=== PATIENT | male | born 1960 | race Caucasian/White ===

== ENCOUNTER 2023-01-09 23:00 | Inpatient (IN) | payer SELFPAY ==
[2023-01-09 23:54] LABS: #Eosinphils 0.1 thou/uL (0.0-0.7); #Monocytes 0.3 thou/uL (0.11-0.59); #Neutrophils 3.3 thou/uL (1.40-6.50); %Basophils 0.6 % (0.0-1.0); %Lymphocytes 29.6 % (21.0-51.0); %Monocytes 6.3 % (0.0-10.0); %Neutrophils 61.1 % (42.0-75.0); Hematocrit 37.4 % (42.0-52.0); Mean Corpuscular HGB CONC 34.8 g/dL (32.0-36.0); Mean Corpuscular Hemoglobin 29.5 pg (27.0-31.0); Mean Platelet Volume 9.6 fL (7.4-10.4); Platelet Count 212 10x3/uL (130-400); RBC Distribution Width 13.7 % (11.5-14.5); White Blood Cell (WBC) Count 5.4 10x3/uL (4.8-10.8)
[2023-01-10 00:18] LABS: ALT (SGPT) 18 U/L (8-55); AST (SGOT) 11 U/L (5-34); Albumin 4.4 g/dL (3.5-5.0); Alkaline Phosphatase 61 U/L (40-110); Anion Gap 15 mmol/L (10-20); BUN (Urea Nitrogen) 12 mg/dL (8.4-25.7); Bilirubin, Total 0.6 mg/dL (0.2-1.2); Calc. Creatinine Clearance 0 mL/min (70-130); Calcium 9.3 mg/dL (7.8-10.44); Carbon Dioxide 21 mmol/L (22-29); Chloride 103 mmol/L (98-107); Estimated GFR 79; Globulin 3.3 g/dL (2.4-3.5); Magnesium 1.8 mg/dL (1.6-2.6); Potassium 3.9 mmol/L (3.5-5.1); Protein, Total 7.7 g/dL (6.0-8.3); Sodium 135 mmol/L (136-145)
[2023-01-10 00:20] LABS: Troponin I 0.053 ng/mL (< 0.028)
[2023-01-10 00:23] LABS: Glucose 425 mg/dL (70-105)
[2023-01-10] MEDS ORDERED: Furosemide 40 MG/4 ML VIAL ONE ×2 (00:27→13:59)
[2023-01-10] MEDS ORDERED: Azithromycin 500 MG VIAL ONE (03:38)
[2023-01-10] MEDS ORDERED: cefTRIAXone (ROCEPHIN) 1 GM VIAL ONE (03:39)
[2023-01-10] MEDS ORDERED: Acetaminophen 325 MG TAB PO PRN (04:40)
[2023-01-10] MEDS ORDERED: Ondansetron PF 4 MG/2 ML Vial IVP PRN (04:40)
[2023-01-10 04:47] LABS: Troponin I 0.044 ng/mL (< 0.028)
[2023-01-10] MEDS ORDERED: Dextrose 5% in Water 1,000 ML IV PRN (05:01)
[2023-01-10] MEDS ORDERED: Dextrose 50% Abboject 50 ML SYRINGE SLOW IVP PRN (05:01)
[2023-01-10] MEDS ORDERED: Glucagon 1 MG/ML KIT IM PRN (05:01)
[2023-01-10] MEDS ORDERED: HumaLOG 300 UNITS/3 ML VIAL SC PRN (05:01)
[2023-01-10] MEDS ORDERED: Furosemide 20 MG/2 ML VIAL SLOW IVP SCH (06:00)
[2023-01-10 08:08] LABS: Hemoglobin A1c 9.9 % (4.0-6.0)
[2023-01-10] MEDS ORDERED: Furosemide 20 MG/2 ML VIAL ONE (08:10)
[2023-01-10] MEDS ORDERED: Lisinopril 10 MG TAB PO SCH (11:00)
[2023-01-10] MEDS ORDERED: Iopamidol-370 76% 500 ML MDV (1 ML CHARGE) ONE (11:40)
[2023-01-10 12:40] VITALS: BMI 27.8
[2023-01-10] MEDS ORDERED: HumaLOG 300 UNITS/3 ML VIAL ONE (12:53)
[2023-01-10] MEDS: HumaLOG 300 UNITS/3 ML VIAL SC PRN (12:59)
[2023-01-10] MEDS: Furosemide 40 MG/4 ML VIAL SLOW IVP SCH (14:38)
[2023-01-10] MEDS: Carvedilol 3.125 MG TAB PO SCH (20:26)
[2023-01-10] MEDS ORDERED: Melatonin 3 MG TAB PO PRN (20:33)
[2023-01-10] MEDS ORDERED: Atorvastatin Calcium 40 MG TAB PO SCH (21:00)
[2023-01-11] MEDS ORDERED: cefTRIAXone\\ROCEPHIN 1 GM in Sodium Chloride 0.9% 100 ML IVPB SCH (04:00)
[2023-01-11] MEDS ORDERED: Azithromycin 500 MG in Sodium Chloride 0.9% 250 ML 250 ML IVPB SCH (04:00)
[2023-01-11 04:19] LABS: #Basophils 0.1 thou/uL (0.0-0.2); #Eosinphils 0.2 thou/uL (0.0-0.7); #Monocytes 0.6 thou/uL (0.11-0.59); #Neutrophils 3.3 thou/uL (1.40-6.50); %Basophils 0.9 % (0.0-1.0); %Monocytes 10.4 % (0.0-10.0); %Neutrophils 57.3 % (42.0-75.0); Hematocrit 38.5 % (42.0-52.0); Hemoglobin 13.1 g/dL (14.0-18.0); Mean Corpuscular Volume 85.2 fl (78.0-98.0); Mean Platelet Volume 9.8 fL (7.4-10.4); Platelet Count 212 10x3/uL (130-400); RBC Distribution Width 13.4 % (11.5-14.5); Red Blood Cell (RBC) Count 4.52 mill/uL (4.70-6.10); White Blood Cell (WBC) Count 5.7 10x3/uL (4.8-10.8)
[2023-01-11 04:52] LABS: Anion Gap 16 mmol/L (10-20); BUN (Urea Nitrogen) 18 mg/dL (8.4-25.7); Calc. Creatinine Clearance 84 mL/min (70-130); Calcium 9.8 mg/dL (7.8-10.44); Carbon Dioxide 27 mmol/L (22-29); Chloride 100 mmol/L (98-107); Cholesterol 231 mg/dl (< 200 Desired); Estimated GFR 69; Glucose 233 mg/dL (70-105); HDL Cholesterol 33 mg/dL (>60 Neg Risk); LDL Cholesterol, Calculated 155 mg/dL; Potassium 3.6 mmol/L (3.5-5.1); Sodium 139 mmol/L (136-145); Triglycerides 214 mg/dL (Less than 150)
[2023-01-11] MEDS: Furosemide 40 MG/4 ML VIAL SLOW IVP SCH ×2 (05:57→14:25)
[2023-01-11] MEDS ORDERED: Lisinopril 2.5 MG TAB PO SCH (09:00)
[2023-01-11] MEDS ORDERED: metFORMIN 500 MG TAB PO SCH (09:00)
[2023-01-11] MEDS ORDERED: Aspirin 81 mg Enteric Coated Tablet PO SCH (09:00)
[2023-01-11] MEDS ORDERED: Clopidogrel Bisulfate 75 MG TAB PO SCH (09:00)
[2023-01-11] MEDS: Carvedilol 3.125 MG TAB PO SCH (09:10)
[2023-01-11 11:45] VITALS: TEMP 98.1
[2023-01-11 11:46] VITALS: BP 136/82
[2023-01-11] MEDS: HumaLOG 300 UNITS/3 ML VIAL SC PRN (12:35)
== END 2023-01-11 15:51 | disposition home or self-care (01) | DRG 280 ==
LOC: ERS 23:00 → ERHOLD 01-10 04:43 → OBSVTOIN 01-10 05:47 → 2SW 01-10 18:02
PROVIDERS: ADMIT Internal Medicine; ATTEND Nurse Practitioner Acute Care
DX: I11.0 Hypertensive heart disease with heart failure (principal); I50.23 Acute on chronic systolic (congestive) heart failure; I21.A1 Myocardial infarction type 2; J18.9 Pneumonia, unspecified organism; E78.5 Hyperlipidemia, unspecified; I25.10 Atherosclerotic heart disease of native coronary artery without angina pectoris; G47.33 Obstructive sleep apnea (adult) (pediatric); F17.220 Nicotine dependence, chewing tobacco, uncomplicated; E11.65 Type 2 diabetes mellitus with hyperglycemia; R77.8 Other specified abnormalities of plasma proteins; Z95.1 Presence of aortocoronary bypass graft; Z85.828 Personal history of other malignant neoplasm of skin; Z82.49 Family history of ischemic heart disease and other diseases of the circulatory system
CPT/HCPCS: 36415; 36416; 71046; 71275; 80048; 80053; 80061; 83036; 83735; 83880; 84145; 84484; 85025; 85379; 93005; 93306; 97139; J0456; J0696; J1650; J1815; J1940; Q9967

== ENCOUNTER 2023-01-17 07:38 | Emergency (ER) | payer SELFPAY ==
[2023-01-17] MEDS ORDERED: Aspirin Chewable 81 MG TAB ONE (08:00)
[2023-01-17 08:23] LABS: #Eosinphils 0.1 thou/uL (0.0-0.7); #Monocytes 0.5 thou/uL (0.11-0.59); #Neutrophils 5.7 thou/uL (1.40-6.50); %Basophils 0.4 % (0.0-1.0); %Eosinophils 1.1 % (0.0-10.0); %Lymphocytes 15.7 % (21.0-51.0); %Monocytes 6.3 % (0.0-10.0); %Neutrophils 76.1 % (42.0-75.0); Hemoglobin 12.8 g/dL (14.0-18.0); Mean Corpuscular HGB CONC 34.6 g/dL (32.0-36.0); Mean Corpuscular Hemoglobin 29.9 pg (27.0-31.0); Mean Corpuscular Volume 86.4 fl (78.0-98.0); Mean Platelet Volume 9.9 fL (7.4-10.4); Platelet Count 174 10x3/uL (130-400); RBC Distribution Width 13.3 % (11.5-14.5); Red Blood Cell (RBC) Count 4.28 mill/uL (4.70-6.10); White Blood Cell (WBC) Count 7.4 10x3/uL (4.8-10.8)
[2023-01-17] MEDS ORDERED: Furosemide 40 MG/4 ML VIAL ONE (08:43)
[2023-01-17 11:28] LABS: Albumin 4.3 g/dL (3.5-5.0)
[2023-01-17 11:29] LABS: Calcium 9.5 mg/dL (7.8-10.44); Chloride 105 mmol/L (98-107); Sodium 138 mmol/L (136-145)
[2023-01-17 11:30] LABS: Globulin 3.2 g/dL (2.4-3.5); Glucose 243 mg/dL (70-105); Protein, Total 7.5 g/dL (6.0-8.3)
[2023-01-17 11:32] LABS: Anion Gap 17 mmol/L (10-20); Bilirubin, Total 0.7 mg/dL (0.2-1.2); Carbon Dioxide 20 mmol/L (22-29)
[2023-01-17 11:33] LABS: Alkaline Phosphatase 54 U/L (40-110)
[2023-01-17 11:34] LABS: BUN (Urea Nitrogen) 17 mg/dL (8.4-25.7); Calc. Creatinine Clearance 0 mL/min (70-130); Estimated GFR 79
[2023-01-17 11:35] LABS: AST (SGOT) 17 U/L (5-34)
[2023-01-17 11:36] LABS: ALT (SGPT) 34 U/L (8-55)
[2023-01-17 12:40] LABS: Troponin I 0.019 ng/mL (< 0.028)
== END 2023-01-17 13:44 | disposition home or self-care (01) ==
LOC: ERS 07:38
DX: R06.00 Dyspnea, unspecified (principal); I11.0 Hypertensive heart disease with heart failure; I50.9 Heart failure, unspecified; E11.9 Type 2 diabetes mellitus without complications; E78.5 Hyperlipidemia, unspecified; F17.200 Nicotine dependence, unspecified, uncomplicated; Z79.84 Long term (current) use of oral hypoglycemic drugs; Z79.899 Other long term (current) drug therapy
CPT/HCPCS: 36415; 71045; 80053; 83880; 84484; 85025; 93005; 94760; 96374; J1940

== ENCOUNTER 2023-02-14 07:16 | Observation (INO) | payer SELFPAY ==
[2023-02-14 08:04] LABS: #Eosinphils 0.1 thou/uL (0.0-0.7); #Monocytes 0.4 thou/uL (0.11-0.59); #Neutrophils 4.3 thou/uL (1.40-6.50); %Basophils 0.3 % (0.0-1.0); %Eosinophils 1.7 % (0.0-10.0); %Monocytes 6.9 % (0.0-10.0); %Neutrophils 70.9 % (42.0-75.0); Hematocrit 37.9 % (42.0-52.0); Hemoglobin 12.3 g/dL (14.0-18.0); Mean Corpuscular HGB CONC 32.5 g/dL (32.0-36.0); Mean Corpuscular Hemoglobin 28.5 pg (27.0-31.0); Mean Corpuscular Volume 87.9 fl (78.0-98.0); Mean Platelet Volume 10.3 fL (7.4-10.4); Platelet Count 210 10x3/uL (130-400); RBC Distribution Width 13.5 % (11.5-14.5); Red Blood Cell (RBC) Count 4.31 mill/uL (4.70-6.10); White Blood Cell (WBC) Count 6.1 10x3/uL (4.8-10.8)
[2023-02-14] MEDS ORDERED: Furosemide 20 MG (2 mL) VIAL ONE ×2 (08:40→09:49)
[2023-02-14 09:15] LABS: ALT (SGPT) 28 U/L (8-55); AST (SGOT) 14 U/L (5-34); Albumin 4.5 g/dL (3.5-5.0); Alkaline Phosphatase 59 U/L (40-110); Anion Gap 14 mmol/L (10-20); BUN (Urea Nitrogen) 18 mg/dL (8.4-25.7); Bilirubin, Total 0.8 mg/dL (0.2-1.2); Calc. Creatinine Clearance 0 mL/min (70-130); Calcium 9.2 mg/dL (7.8-10.44); Carbon Dioxide 22 mmol/L (22-29); Chloride 105 mmol/L (98-107); Estimated GFR 70; Glucose 278 mg/dL (70-105); Potassium 3.9 mmol/L (3.5-5.1); Protein, Total 7.5 g/dL (6.0-8.3); Sodium 137 mmol/L (136-145)
[2023-02-14 09:20] LABS: Troponin I 0.026 ng/mL (< 0.028)
[2023-02-14] MEDS ORDERED: Aspirin Chewable 81 MG TAB ONE (10:33)
[2023-02-14] MEDS ORDERED: Dextrose 5% in Water 1,000 ML IV PRN (10:50)
[2023-02-14] MEDS ORDERED: Dextrose 50% Abboject 50 ML SYRINGE SLOW IVP PRN (10:50)
[2023-02-14] MEDS ORDERED: Glucagon 1 MG/ML KIT IM PRN (10:50)
[2023-02-14] MEDS ORDERED: HumaLOG 300 UNITS/3 ML VIAL SC PRN ×2 (10:50)
[2023-02-14 11:20] VITALS: BMI 29.9
[2023-02-14 11:40] LABS: Troponin I 0.021 ng/mL (< 0.028)
[2023-02-14] MEDS ORDERED: Furosemide 40 MG (4 mL) VIAL ONE (13:45)
[2023-02-14] MEDS ORDERED: Insulin Regular 300 UNITS/3 ML VIAL ONE (13:45)
[2023-02-14] MEDS: Furosemide 40 MG (4 mL) VIAL SLOW IVP SCH (13:54)
[2023-02-14 14:28] LABS: Troponin I 0.032 ng/mL (< 0.028)
[2023-02-14] MEDS ORDERED: Heparin 5,000 UNITS/ML VIAL ONE (14:45)
[2023-02-14] MEDS: Heparin 5,000 UNITS/ML VIAL SC SCH ×2 (14:51→20:12)
[2023-02-14] MEDS: metFORMIN 500 MG TAB PO SCH (17:52)
[2023-02-14] MEDS: Carvedilol 3.125 MG TAB PO SCH (17:52)
[2023-02-14] MEDS ORDERED: Atorvastatin Calcium 40 MG TAB PO SCH (21:00)
[2023-02-15] MEDS: Furosemide 40 MG (4 mL) VIAL SLOW IVP SCH (05:30)
[2023-02-15 05:50] LABS: #Eosinphils 0.1 thou/uL (0.0-0.7); #Monocytes 0.6 thou/uL (0.11-0.59); #Neutrophils 2.9 thou/uL (1.40-6.50); %Basophils 0.2 % (0.0-1.0); %Eosinophils 1.9 % (0.0-10.0); %Monocytes 11.7 % (0.0-10.0); Hematocrit 35.2 % (42.0-52.0); Hemoglobin 11.5 g/dL (14.0-18.0); Mean Corpuscular HGB CONC 32.7 g/dL (32.0-36.0); Mean Corpuscular Hemoglobin 28.7 pg (27.0-31.0); Mean Corpuscular Volume 87.8 fl (78.0-98.0); Mean Platelet Volume 10.4 fL (7.4-10.4); Platelet Count 187 10x3/uL (130-400); RBC Distribution Width 13.5 % (11.5-14.5); Red Blood Cell (RBC) Count 4.01 mill/uL (4.70-6.10); White Blood Cell (WBC) Count 5.2 10x3/uL (4.8-10.8)
[2023-02-15 06:28] LABS: Anion Gap 15 mmol/L (10-20); BUN (Urea Nitrogen) 18 mg/dL (8.4-25.7); Calc. Creatinine Clearance 105 mL/min (70-130); Calcium 8.8 mg/dL (7.8-10.44); Carbon Dioxide 23 mmol/L (22-29); Chloride 104 mmol/L (98-107); Estimated GFR 86; Glucose 197 mg/dL (70-105); Potassium 3.8 mmol/L (3.5-5.1); Sodium 138 mmol/L (136-145)
[2023-02-15] MEDS ORDERED: Spironolactone 25 MG TAB PO SCH (08:00)
[2023-02-15] MEDS ORDERED: Acetaminophen 325 MG TAB PO PRN (08:09)
[2023-02-15] MEDS: Carvedilol 3.125 MG TAB PO SCH (08:45)
[2023-02-15] MEDS: metFORMIN 500 MG TAB PO SCH (08:52)
[2023-02-15] MEDS ORDERED: Clopidogrel Bisulfate 75 MG TAB PO SCH (09:00)
[2023-02-15] MEDS ORDERED: Aspirin 81 mg Enteric Coated Tablet PO SCH (09:00)
[2023-02-15] MEDS ORDERED: Lisinopril 2.5 MG TAB PO SCH ×2 (09:00→11:45)
[2023-02-15] MEDS ORDERED: Enoxaparin 40 MG (0.4 mL) SYRINGE SC SCH (09:00)
[2023-02-15] MEDS ORDERED: Famotidine 20 MG TAB PO SCH (09:00)
[2023-02-15 11:34] VITALS: BP 145/85; TEMP 98.4
== END 2023-02-15 12:00 | disposition home or self-care (01) ==
LOC: ERS 07:16 → ERHOLD 10:54 → 2SW 16:03
PROVIDERS: ADMIT Family Medicine; ATTEND Family Medicine
DX: I11.0 Hypertensive heart disease with heart failure (principal); I50.22 Chronic systolic (congestive) heart failure; R06.02 Shortness of breath; E78.5 Hyperlipidemia, unspecified; I25.10 Atherosclerotic heart disease of native coronary artery without angina pectoris; E11.9 Type 2 diabetes mellitus without complications; Z98.890 Other specified postprocedural states; Z79.82 Long term (current) use of aspirin; Z79.84 Long term (current) use of oral hypoglycemic drugs; Z79.02 Long term (current) use of antithrombotics/antiplatelets; Z79.899 Other long term (current) drug therapy; Z87.891 Personal history of nicotine dependence
CPT/HCPCS: 36415; 36416; 71045; 80048; 80053; 83880; 84484; 85025; 93005; 96372; 96374; 96376; G0378; J1644; J1650; J1815; J1940

== ENCOUNTER 2023-02-26 23:47 | Inpatient (IN) | payer MEDICAID, MEDICARE, SELFPAY ==
[2023-02-27 00:23] LABS: #Eosinphils 0.1 thou/uL (0.0-0.7); #Monocytes 0.6 thou/uL (0.11-0.59); #Neutrophils 4.8 thou/uL (1.40-6.50); %Basophils 0.3 % (0.0-1.0); %Eosinophils 1.1 % (0.0-10.0); %Lymphocytes 25.2 % (21.0-51.0); %Neutrophils 65.1 % (42.0-75.0); Hemoglobin 12.6 g/dL (14.0-18.0); Mean Corpuscular HGB CONC 33.2 g/dL (32.0-36.0); Mean Corpuscular Hemoglobin 28.5 pg (27.0-31.0); Mean Platelet Volume 10.2 fL (7.4-10.4); Platelet Count 204 10x3/uL (130-400); RBC Distribution Width 13.6 % (11.5-14.5); Red Blood Cell (RBC) Count 4.42 mill/uL (4.70-6.10); White Blood Cell (WBC) Count 7.4 10x3/uL (4.8-10.8)
[2023-02-27] MEDS ORDERED: Furosemide 40 MG (4 mL) VIAL ONE (00:54)
[2023-02-27 01:20] LABS: ALT (SGPT) 18 U/L (8-55); AST (SGOT) 11 U/L (5-34); Albumin 4.4 g/dL (3.5-5.0); Alkaline Phosphatase 59 U/L (40-110); Anion Gap 15 mmol/L (10-20); BUN (Urea Nitrogen) 18 mg/dL (8.4-25.7); Bilirubin, Total 0.7 mg/dL (0.2-1.2); Calc. Creatinine Clearance 0 mL/min (70-130); Calcium 9.3 mg/dL (7.8-10.44); Carbon Dioxide 24 mmol/L (22-29); Chloride 103 mmol/L (98-107); Estimated GFR 53; Globulin 2.9 g/dL (2.4-3.5); Glucose 212 mg/dL (70-105); Potassium 4.3 mmol/L (3.5-5.1); Protein, Total 7.3 g/dL (6.0-8.3); Sodium 138 mmol/L (136-145); Troponin I 0.024 ng/mL (< 0.028)
[2023-02-27] MEDS ORDERED: Acetaminophen 325 MG TAB PO PRN (04:32)
[2023-02-27] MEDS ORDERED: Ondansetron PF 4 MG/2 ML Vial IVP PRN (04:32)
[2023-02-27] MEDS ORDERED: Glucagon 1 MG/ML KIT IM PRN (04:46)
[2023-02-27] MEDS ORDERED: Dextrose 5% in Water 1,000 ML IV PRN (04:46)
[2023-02-27] MEDS ORDERED: Dextrose 50% Abboject 50 ML SYRINGE SLOW IVP PRN (04:46)
[2023-02-27] MEDS ORDERED: Furosemide 20 MG (2 mL) VIAL SLOW IVP SCH (06:00)
[2023-02-27] MEDS: Lisinopril 2.5 MG TAB PO SCH (08:58)
[2023-02-27] MEDS: Carvedilol 3.125 MG TAB PO SCH ×2 (08:58→17:35)
[2023-02-27] MEDS: Clopidogrel Bisulfate 75 MG TAB PO SCH (08:58)
[2023-02-27] MEDS: Enoxaparin 40 MG (0.4 mL) SYRINGE SC SCH (08:58)
[2023-02-27] MEDS ORDERED: FLU VACC QS2023-24(6MOS UP)/PF 60 MCG/0.5 ML SYRINGE IM ONE (09:00)
[2023-02-27] MEDS: HumaLOG 300 UNITS/3 ML VIAL SC PRN ×2 (13:43→17:36)
[2023-02-27] MEDS ORDERED: Furosemide 40 MG (4 mL) VIAL SLOW IVP SCH (14:00)
[2023-02-27] MEDS: Atorvastatin Calcium 40 MG TAB PO SCH (19:43)
[2023-02-28 04:52] LABS: #Eosinphils 0.1 thou/uL (0.0-0.7); #Monocytes 0.5 thou/uL (0.11-0.59); #Neutrophils 3.1 thou/uL (1.40-6.50); %Basophils 0.4 % (0.0-1.0); %Eosinophils 1.8 % (0.0-10.0); %Lymphocytes 31.6 % (21.0-51.0); %Monocytes 9.4 % (0.0-10.0); %Neutrophils 56.6 % (42.0-75.0); Hematocrit 37.3 % (42.0-52.0); Hemoglobin 12.2 g/dL (14.0-18.0); Mean Corpuscular HGB CONC 32.7 g/dL (32.0-36.0); Mean Corpuscular Hemoglobin 28.1 pg (27.0-31.0); Mean Corpuscular Volume 85.9 fl (78.0-98.0); Mean Platelet Volume 10.5 fL (7.4-10.4); Platelet Count 207 10x3/uL (130-400); RBC Distribution Width 13.5 % (11.5-14.5); Red Blood Cell (RBC) Count 4.34 mill/uL (4.70-6.10); White Blood Cell (WBC) Count 5.4 10x3/uL (4.8-10.8)
[2023-02-28] MEDS: HumaLOG 300 UNITS/3 ML VIAL SC PRN ×4 (06:04→20:23)
[2023-02-28 06:24] LABS: Anion Gap 18 mmol/L (10-20); BUN (Urea Nitrogen) 21 mg/dL (8.4-25.7); Calc. Creatinine Clearance 79 mL/min (70-130); Calcium 9.6 mg/dL (7.8-10.44); Carbon Dioxide 23 mmol/L (22-29); Chloride 102 mmol/L (98-107); Estimated GFR 61; Glucose 193 mg/dL (70-105); Magnesium 1.4 mg/dL (1.6-2.6); Potassium 3.8 mmol/L (3.5-5.1); Sodium 139 mmol/L (136-145)
[2023-02-28] MEDS ORDERED: Magnesium Sulfate 4 GM in Sodium Chloride 0.9% 250 ML 250 ML IVPB SCH (07:30)
[2023-02-28] MEDS ORDERED: Magnesium Sulfate In Water 4 GM in Premix 1 BAG IVPB SCH (07:30)
[2023-02-28] MEDS ORDERED: Electrolyte Replacement Protocol FS PRN (07:30)
[2023-02-28] MEDS ORDERED: Electrolyte Replacement Protocol 1 EACH FS SCH (07:30)
[2023-02-28] MEDS: Lisinopril 2.5 MG TAB PO SCH (08:51)
[2023-02-28] MEDS: Clopidogrel Bisulfate 75 MG TAB PO SCH (08:51)
[2023-02-28] MEDS: Aspirin 81 mg Enteric Coated Tablet PO SCH (08:51)
[2023-02-28] MEDS: Carvedilol 3.125 MG TAB PO SCH ×2 (08:51→17:30)
[2023-02-28] MEDS: Furosemide 40 MG (4 mL) VIAL SLOW IVP SCH (08:52)
[2023-02-28] MEDS: Enoxaparin 40 MG (0.4 mL) SYRINGE SC SCH (08:53)
[2023-02-28] MEDS ORDERED: Furosemide 40 MG (4 mL) VIAL SLOW IVP SCH (12:30)
[2023-02-28] MEDS: Atorvastatin Calcium 40 MG TAB PO SCH (20:23)
[2023-03-01 05:06] LABS: #Eosinphils 0.1 thou/uL (0.0-0.7); #Monocytes 0.5 thou/uL (0.11-0.59); %Basophils 0.4 % (0.0-1.0); %Eosinophils 1.4 % (0.0-10.0); %Lymphocytes 27.9 % (21.0-51.0); %Neutrophils 60.9 % (42.0-75.0); Hematocrit 36.6 % (42.0-52.0); Mean Corpuscular HGB CONC 32.8 g/dL (32.0-36.0); Mean Corpuscular Hemoglobin 28.4 pg (27.0-31.0); Mean Corpuscular Volume 86.5 fl (78.0-98.0); Mean Platelet Volume 9.9 fL (7.4-10.4); Platelet Count 186 10x3/uL (130-400); RBC Distribution Width 13.5 % (11.5-14.5); Red Blood Cell (RBC) Count 4.23 mill/uL (4.70-6.10)
[2023-03-01 05:27] LABS: Anion Gap 18 mmol/L (10-20); BUN (Urea Nitrogen) 23 mg/dL (8.4-25.7); Calc. Creatinine Clearance 83 mL/min (70-130); Calcium 9.1 mg/dL (7.8-10.44); Carbon Dioxide 23 mmol/L (22-29); Chloride 102 mmol/L (98-107); Estimated GFR 65; Glucose 111 mg/dL (70-105); Magnesium 1.8 mg/dL (1.6-2.6); Potassium 3.7 mmol/L (3.5-5.1); Sodium 139 mmol/L (136-145)
[2023-03-01] MEDS ORDERED: Magnesium 2 GM/50 ML(in water) 2 GM in Premix 1 BAG IVPB SCH (08:00)
[2023-03-01] MEDS: Aspirin 81 mg Enteric Coated Tablet PO SCH (09:38)
[2023-03-01] MEDS: Carvedilol 3.125 MG TAB PO SCH ×2 (09:38→18:09)
[2023-03-01] MEDS: Lisinopril 2.5 MG TAB PO SCH (09:38)
[2023-03-01] MEDS: Clopidogrel Bisulfate 75 MG TAB PO SCH (09:38)
[2023-03-01] MEDS: Furosemide 40 MG (4 mL) VIAL SLOW IVP SCH (09:38)
[2023-03-01] MEDS: Enoxaparin 40 MG (0.4 mL) SYRINGE SC SCH (09:39)
[2023-03-01] MEDS ORDERED: Furosemide 40 MG (4 mL) VIAL SLOW IVP SCH (11:00)
[2023-03-01] MEDS: HumaLOG 300 UNITS/3 ML VIAL SC PRN ×2 (13:07→20:38)
[2023-03-01] MEDS: Atorvastatin Calcium 40 MG TAB PO SCH (20:38)
[2023-03-02 05:44] LABS: Anion Gap 15 mmol/L (10-20); BUN (Urea Nitrogen) 28 mg/dL (8.4-25.7); Calc. Creatinine Clearance 77 mL/min (70-130); Calcium 9.1 mg/dL (7.8-10.44); Carbon Dioxide 26 mmol/L (22-29); Chloride 100 mmol/L (98-107); Estimated GFR 60; Glucose 166 mg/dL (70-105); Potassium 3.6 mmol/L (3.5-5.1); Sodium 137 mmol/L (136-145)
[2023-03-02] MEDS: Aspirin 81 mg Enteric Coated Tablet PO SCH (08:26)
[2023-03-02] MEDS: Clopidogrel Bisulfate 75 MG TAB PO SCH (08:27)
[2023-03-02] MEDS: Carvedilol 3.125 MG TAB PO SCH (08:27)
[2023-03-02] MEDS: Enoxaparin 40 MG (0.4 mL) SYRINGE SC SCH (08:27)
[2023-03-02 08:42] VITALS: BP 123/83; TEMP 97.5
[2023-03-02] MEDS ORDERED: Furosemide 40 MG TAB PO SCH (09:00)
== END 2023-03-02 11:03 | disposition home or self-care (01) | DRG 291 ==
LOC: ERS 23:47 → 2SE 02-27 03:00 → OBSVTOIN 02-28 12:01
PROVIDERS: ADMIT Internal Medicine; ATTEND Family Medicine
DX: I11.0 Hypertensive heart disease with heart failure (principal); I50.43 Acute on chronic combined systolic (congestive) and diastolic (congestive) heart failure; N17.9 Acute kidney failure, unspecified; I25.10 Atherosclerotic heart disease of native coronary artery without angina pectoris; E78.5 Hyperlipidemia, unspecified; E83.42 Hypomagnesemia; E11.9 Type 2 diabetes mellitus without complications; Z79.899 Other long term (current) drug therapy; Z79.84 Long term (current) use of oral hypoglycemic drugs; Z79.82 Long term (current) use of aspirin; Z95.2 Presence of prosthetic heart valve; Z98.890 Other specified postprocedural states; Z82.49 Family history of ischemic heart disease and other diseases of the circulatory system; Z87.891 Personal history of nicotine dependence
CPT/HCPCS: 36415; 36416; 71045; 80048; 80053; 83735; 83880; 84484; 85025; 93005; 96372; 96374; 96375; 96376; 97139; G0378; J1650; J1815; J1940; J3475

== ENCOUNTER 2023-10-06 06:00 | Day surgery (SDC) | payer MEDICARE ==
[2023-10-05 09:48] VITALS: BMI 27.8
[2023-10-06] MEDS ORDERED: PHENYLEPHRINE-NS 100 MCG/ML 10 ML SYRINGE ONE (07:16)
[2023-10-06] MEDS ORDERED: PROPOFOL 40 ML ONE (07:16)
[2023-10-06] MEDS ORDERED: Lidocaine 2% PF 5 ML VIAL ONE (07:16)
[2023-10-06] MEDS ORDERED: Lidocaine 1% PF 5 ML VIAL ONE (07:17)
[2023-10-06] MEDS ORDERED: Etomidate 40 MG (20 mL) VIAL ONE (07:18)
== END 2023-10-06 09:19 | disposition home or self-care (01) ==
LOC: SDC 06:00
PROVIDERS: ATTEND Internal Medicine Gastroenterology
PROC: 0DBN8ZZ Excision of Sigmoid Colon, Via Natural or Artificial Opening Endoscopic (ICD-10-PCS; principal; 2023-10-06)
DX: Z12.11 Encounter for screening for malignant neoplasm of colon (principal); K63.5 Polyp of colon; I11.0 Hypertensive heart disease with heart failure; I50.22 Chronic systolic (congestive) heart failure; E11.65 Type 2 diabetes mellitus with hyperglycemia; Z95.1 Presence of aortocoronary bypass graft; Z79.84 Long term (current) use of oral hypoglycemic drugs; Z79.02 Long term (current) use of antithrombotics/antiplatelets; Z98.890 Other specified postprocedural states; Z79.899 Other long term (current) drug therapy
CPT/HCPCS: 45385; 82962; 93005; J2704; 36416; 88305; 93010; J2001